=== PATIENT | female | born 1990 | race Two or more races ===

== ENCOUNTER 2025-01-08 13:45 | Inpatient (IN) | payer OTHER ==
[~2025-01-08] VITALS: Ht 165.1 cm; Wt 3.2 kg
[2025-01-16 16:44] VITALS: BP 111/74
[2025-01-16] MEDS ORDERED: PRENATABS RX T1 EACH PO (16:56)
[2025-01-16] MEDS ORDERED: BRIMONIDINE TART5 ML OP (16:56)
[2025-01-16 17:13] LABS: BASO % 0.5 % (0.1-1.2); EOS # 0.06 (0.04-0.54); EOS % 0.6 % (0.7-7.0); LYMPH # 2.04 (1.18-3.74); LYMPH % 18.8 % (19.3-53.1); MEAN PLATELET VOLUME 11.60 fl (9.4-12.4); MONO # 0.81 (0.24-0.82); MONO % 7.5 % (4.7-12.5); NEUT # 7.56 (1.56-6.13); NEUT % 69.6 % (34.0-71.1); RED CELL DISTRIBUTION WIDTH 14.3 % (11.6-14.4)
[2025-01-16 17:32] LABS: INR 0.95
[2025-01-16 17:39] LABS: ALT/SGPT 19.0 U/L (12-78); AST/SGOT 14.0 U/L (15-37); BILIRUBIN TOTAL 0.37 mg/dL (0.3-1.2); BUN CREA RATIO 15.0 (7.0-25.0); CREATININE SERUM 0.59 mg/dL (0.55-1.02); GFR 115.99; GLOBULINA 3.9 G/DL (2.4-3.5); GLUCOSE FASTING 100.0 mg/dL (65-100); OSMOLALITY SERUM 278.0 MOSM/KG (275-295)
[2025-01-16 18:17] LABS: URINE APPEARANCE Clear; URINE BILIRRUBIN Negative (NEGATIVE); URINE BLOOD Negative; URINE COLOR Dark Yellow; URINE GLUCOSE Negative (NEGATIVE); URINE KETONE Trace (NEGATIVE); URINE LEUKOCYTE Negative; URINE NITRATE Negative; URINE PROTEIN Trace (NEGATIVE); URINE UROBILINOGEN 1.0 E.U./dl
[2025-01-16 18:20] LABS: URINE BACTERIA 3235.1 uL (0.0-1933); URINE EPITHELIAL CELLS 22.4 uL (0.0-38.8); URINE RBC 3.6 uL (0.0-20.8); URINE WBC 19.8 uL (0.0-23.2)
[2025-01-16 18:37] LABS: URINE CAST 0.43 uL (0.0-1.40)
[2025-01-16] MEDS ORDERED: MISOPROSTOL 25 MCG/4 ML GEL.W.APPL VAG ONE (19:00)
[2025-01-16 19:56] VITALS: BP 126/82
[2025-01-16 23:27] VITALS: BP 113/69
[2025-01-17] VITALS (8 sets, daily range): BP systolic 86–125; BP diastolic 55–78
[2025-01-17] MEDS ORDERED: MORPHINE SULFATE 4 MG/ML VIAL IV ONE (03:15)
[2025-01-17] MEDS ORDERED: OXYTOCIN 500 ML IV SCH (07:15)
[2025-01-17] MEDS ORDERED: OXYTOCIN 20 UNITS/1000ML RL PIGGYBAG IV SCH (15:45)
[2025-01-17] MEDS ORDERED: LIDOCAINE HCL 1% 20 ML VIAL IJ ONE (15:45)
[2025-01-17] MEDS ORDERED: CHLORHEXIDINE GLUCONATE 120 ML BOTTLE TOP ONE ×2 (15:45→16:15)
[2025-01-17] MEDS ORDERED: ACETAMINOPHEN 500 MG GEL..CAP PO PRN (16:15)
[2025-01-17] MEDS ORDERED: DOCUSATE SODIUM 100MG CAP PO SCH (17:00)
[2025-01-17] MEDS ORDERED: BENZOCAINE/MENTHOL 90 ML BOTTLE TOP SCH (18:00)
[2025-01-18 02:59] VITALS: BP 107/66
[2025-01-18 08:51] VITALS: BP 98/63
[2025-01-18 17:00] VITALS: BP 103/61
[2025-01-19 00:57] VITALS: BP 100/62
[2025-01-19 08:31] VITALS: BP 113/76
== END 2025-01-19 15:13 | disposition home or self-care (01) | DRG 768 ==
LOC: LDR 01-16 16:30 → OB/GYN 01-17 14:11
PROVIDERS: ADMIT Obstetrics & Gynecology; ATTEND Obstetrics & Gynecology
PROC: 4A1HXCZ Monitoring of Products of Conception, Cardiac Rate, External Approach (ICD-10-PCS; 2025-01-16)
PROC: 3E0P7VZ Introduction of Hormone into Female Reproductive, Via Natural or Artificial Opening (ICD-10-PCS; 2025-01-16)
PROC: 10E0XZZ Delivery of Products of Conception, External Approach (ICD-10-PCS; principal; 2025-01-17)
PROC: 0DQR0ZZ Repair Anal Sphincter, Open Approach (ICD-10-PCS; 2025-01-17)
PROC: 3E033VJ Introduction of Other Hormone into Peripheral Vein, Percutaneous Approach (ICD-10-PCS; 2025-01-17)
DX: O70.21 Third degree perineal laceration during delivery, IIIa (principal); Z37.0 Single live birth; Z3A.39 39 weeks gestation of pregnancy